=== PATIENT | female | born 1990 | race Caucasian/White ===

== ENCOUNTER 2023-04-09 15:50 | Outpatient (CLI) | payer OTHER, SELFPAY ==
[2023-04-09 16:20] VITALS: BMI 25.2
[2023-04-09 16:30] VITALS: BP 124/79; PULSE 66
[2023-04-09 16:31] VITALS: PULSE 70; O2SAT 98
[2023-04-09 16:34] VITALS: TEMP 37.1
[2023-04-09 17:16] LABS: ROM Internal Control Test YES-OK TO RESULT pt. (Internal QC); ROM Patient Test Negative (Negative); Record Kit Lot#, ROM+ K1409
--- NOTE | 2023-04-09 21:05 | OB.TRI.NOTE ---
HPI - General General Date of Service: 04/09/23 HPI Narrative WHITNEY WANG, is a 32 F @ 40 weeks who presents from office to r/o ROM- + nitrazine but negative ferning. PFSH PFSH Home Medications vit no.95-ferrous fumarate 28 mg-folic acid 800 mcg tablet () 1 tab PO DAILY 04/09/23 [History Last Taken Unknown] Allergy/AdvReac Type Severity Reaction Status Date / Time No Known Allergies Allergy Verified 04/09/23 16:32 NST FHR Rate Baby A Baseline: 135 Variability:: Moderate Accelerations:: 15 x 15 Decelerations:: None NST Reactive:: Yes FHR Category:: Category I Uterine Activity:: 2-3 min (per RN pt was not feeling them) Assessment & Plan (1) 40 weeks gestation of : (2) False labor: PLAN: Plan @ 40 weeks- Membranes intact, not in labor 1) cervical exam in office 1cm 2) ROM plus negative - membranes intact 3) follow up as scheduled , labor precautions 4) NST reactive cat 1- well being established. 5) dc home
== END 2023-04-09 17:40 | disposition home or self-care (01) ==
LOC: WPPAT 16:18 → WP 16:19
PROVIDERS: Visit Provider Obstetrics & Gynecology
DX: O47.1 False labor at or after 37 completed weeks of gestation (principal); Z3A.40 40 weeks gestation of pregnancy
CPT/HCPCS: 59025; 59050; 84112

== ENCOUNTER 2023-04-16 07:00 | Inpatient (IN) | payer OTHER, SELFPAY ==
[2023-04-16] VITALS (75 sets, daily range): BP systolic 69–164; BP diastolic 39–127; PULSE 48–88; TEMP 36.1–36.6; O2SAT 87–100; BMI 25.1
[2023-04-16] MEDS: Lactated Ringers 1,000 ML 50 ML IV (07:50)
[2023-04-16 08:11] LABS: Absolute Lymphocyte Count 1.43 X10^3/uL (0.83-4.51); Absolute Neutrophil Count 4.3 X10^3/uL (2.0-7.7); Basophil# 0.03 X10^3/uL; Basophil% 0.5 % (0-1); Eosinophil# 0.02 X10^3/uL; Eosinophils% 0.3 % (0-5); Hematocrit 39.3 % (37-47); Hemoglobin 13.4 g/dL (12.0-15.0); Lymphocyte # 1.43 X10^3/ul (0.83-4.51); Lymphocyte % 22.3 % (19-41); Mean Corp Hgb Conc 34.1 g/dL (32-36); Mean Corpuscular Hgb 31.5 pg (27.0-32.0); Mean Corpuscular Volume 92.5 fL (81-99); Mean Platelet Vol. 10.5 fl (6.2-12.0); Monocyte# 0.57 X10^3/uL; Monocyte% 8.9 % (0-10); NRBC Flagged by Analyzer 0 % (0-5); Neutrophil # 4.31 X10^3/uL (2.7-7.7); Neutrophil % 67.4 % (47-70); Platelet Count 260 K/mm3 (150-450); RBC Distribution Width CV 12.4 % (11.6-14.6); RBC Distribution Width SD 41.8 fl (35.1-43.9); Red Blood Count 4.25 M/mm3 (4.2-5.4); White Blood Count 6.4 K/mm3 (4.4-11.0)
[2023-04-16] MEDS: 0.9% Normal Saline Single 100 ML IV.SOLN. INTRA-UTER (08:34)
[2023-04-16] MEDS: Oxytocin 15 Units/NS 250ml 15 UNITS/250 ML IV.SOLN 2 UNITS IV (08:42)
--- NOTE | 2023-04-16 08:44 | PCM.HP.OB ---
HPI - General General Date of Admission: 04/16/23 HPI Narrative WHITNEY WANG, is a 32 F [id number] presents at 41w1d for induction of labor for postdates. uncomplicated. Maternal Data Information LELE Calculator Estimated Delivery Date Method Current WG Current Estimate 04/08/23 Manual 41w 1d PFSH PFSH Home Medications vit no.95-ferrous fumarate 28 mg-folic acid 800 mcg tablet () 1 tab PO DAILY 04/09/23 [History Last Taken 04/15/23] Allergy/AdvReac Type Severity Reaction Status Date / Time No Known Allergies Allergy Verified 04/09/23 16:32 Surgical History (Updated 04/16/23 @ 09:06 by Lauryn Oscar) [place] teeth removed Social History Smoking Status: Never smoker History Elective abortions Hx Para 1 Spontaneous abortions Hx # Term Pregnancies Ectopic pregnancies Hx # Pregnancies Multiple births # of living children NST FHR Rate Baby A Baseline: 135 Variability:: Moderate Accelerations:: 15 x 15 Decelerations:: None FHR Category:: Category I Uterine Activity:: Irregular ROS Constitutional Constitutional: Reports systems reviewed and no addt'l complaints, except as documented; Denies headache(s) Eyes Eyes: Denies acute decrease in peripheral vision, blurry vision or change in vision ENT HEENT: Reports systems reviewed and no addt'l complaints, except as documented Cardiovascular Cardiovascular: Denies chest pain or dizziness Respiratory/Chest Respiratory/Chest: Denies cough, dyspnea, dyspnea on exertion, shortness of breath at rest or shortness of breath with exertion Gastrointestinal Gastrointestinal: Denies abdominal pain, diarrhea, nausea or vomiting Genitourinary Genitourinary: Denies abdominal discomfort Musculoskeletal Musculoskeletal: Denies limited range of motion Integumentary Integumentary: Reports systems reviewed and no addt'l complaints, except as documented Neurologic Neurologic: Reports systems reviewed and no addt'l complaints, except as documented Psychiatric Psychiatric: Reports systems reviewed and no addt'l complaints, except as documented Endocrine Endocrinology: Reports systems reviewed and no addt'l complaints, except as documented Hematologic/Lymphatic Hematologic/Lymphatic: Reports systems reviewed and no addt'l complaints, except as documented Allergic/Immunologic Allergic/Immunologic: Reports systems reviewed and no addt'l complaints, except as documented Vital Signs Vital Signs Vital Signs: 04/16/23 07:23 04/16/23 07:23 04/16/23 07:24 Temperature Temperature Source Temporal Pulse Rate 68 Blood Pressure 126/67 H BP Systolic 126 BP Diastolic 67 Pulse Ox 04/16/23 07:25 04/16/23 07:25 04/16/23 07:24 Temperature 97.6 F L Temperature Source Pulse Rate 88 Blood Pressure BP Systolic BP Diastolic Pulse Ox 97 Weight Weight: 155 lb 9.6 oz Body Mass Index (BMI) 25.1 Physical Exam Const alert and oriented x3 General Appearance: cooperative Orientation / Consciousness: awake, oriented to person, oriented to place and oriented to time Exam Limitations: no limitations HEENT normocephalic Head and Scalp: normal to inspection, normocephalic and atraumatic Face and Sinus: normal facial exam Eyes General Eye: normal appearance of both eyes Neck full ROM Chest Chest: symmetrical chest wall rise Resp normal respiratory effort and normal air movement Auscultation: clear to auscultation bilaterally Cardio regular rate, regular rhythm, S1 normal heart sound, S2 normal heart sound, no murmurs, no rub, no gallops and no clicks GI normal to inspection, nondistended, normoactive bowel sounds and non-tender appearance of the vagina normal Bladder / Kidney Exam: no CVA tenderness Manual OB Exam: estimated gestational size appropriate, presentation cephalic, dilated 2, effaced 60, station -2 and other elizabeth catheter inserted into cervix with stylus without difficulty. 30ml NS instilled into balloon. Patient tolerated well. Amniotic Fluid: no amniotic fluid noted Back/Spine normal ROM Extremity normal to inspection and full ROM Skin no rashes or lesions noted Neuro oriented x3, CN's II-XII intact bilaterally and moves all extremities Sensorium / Orientation: awake, alert and oriented to person Motor Exam: clonus absent Deep Tendon Reflexes: Rt Patellar (L4): 2+ and Lt Patellar (L4): 2+ Labs Labs Labs: Blood Type A POSITIVE Antibody Screen NEGATIVE Hct 39.3 % (37-47) Hgb 13.4 g/dL (12.0-15.0) Syphilis Total Ab Non-reactive GBS negative RPR negative Glucose 106 nml Rubella Positive HBsAG negative HepC negative HIV non reactive A positive GC/CT negative Assessment & Plan (1) 41 weeks gestation of : (2) Encounter for induction of labor: (3) Post-dates : PLAN: Plan 1) Admit to labor and delivery 2) Routine labs 3) Continuous EFM 4) Elizabeth bulb for cervical ripening with pitocin for active management 5) GBS negative 6) Epidural for pain management upon request 7) collaborative physician and notified of patient admission, status, above findings, assessment and plan.
[2023-04-16 08:47] LABS: Syphilis Antibodies Non-reactive
[2023-04-16] MEDS: LACTATED RINGERS 500 ML 999 ML IV ×2 (10:35→16:56)
[2023-04-16] MEDS: fentaNYL-bupivacaine (epidural) 100 ML BAG EPIDURAL ×2 (11:56→16:11)
--- NOTE | 2023-04-16 12:21 | PCM.PN.OB ---
Subjective Subjective Resting in bed with epidural. and family at bedside Objective Data Objective Data Vital Signs: Vital Signs Temp Pulse BP Pulse Ox 97.2 F L 76 130/88 H 100 04/16/23 11:21 04/16/23 12:15 04/16/23 12:15 04/16/23 12:09 Weight: 155 lb 9.6 oz Body Mass Index (BMI) 25.1 Intake & Output: Intake and Output for Last 24 Hours 04/14/23 04/15/23 04/16/23 23:59 23:59 23:59 Intake Total 683.03 / 683.03 Balance 683.03 / 683.03 Lab / Micro Data 04/16/23 07:50 Labs: Laboratory Results - last 24 hr 04/16/23 07:50: WBC 6.4, RBC 4.25, Hgb 13.4, Hct 39.3, MCV 92.5, MCH 31.5, MCHC 34.1, RDW Std Deviation 41.8, RDW Coeff of Baltazar 12.4, Plt Count 260, MPV 10.5, Immature Gran % (Auto) 0.600, Neut % (Auto) 67.4, Lymph % (Auto) 22.3, [place] % (Auto) 8.9, Eos % (Auto) 0.3, Baso % (Auto) 0.5, Absolute Neuts (auto) 4.3, Absolute Lymphs (auto) 1.43, Nucleated RBC % 0, Syphilis Total Ab Non-reactive, Blood Type A POSITIVE, Antibody Screen NEGATIVE Physical Exam Amniotic Fluid: meconium-stained and other AROM, tolerated well NST FHR Rate Baby A Baseline: 135 Variability:: Moderate Accelerations:: 15 x 15 Decelerations:: None FHR Category:: Category I Uterine Activity:: every 1-2 minutes. Pitocin turned down from 4mus to 2 mus Assessment & Plan (1) Post-dates : (2) Encounter for induction of labor: (3) 41 weeks gestation of : (4) Thin meconium stained amniotic fluid: PLAN: Plan 1) AROM, meconium stained fluid. Will call for rehabilitation center manager and respiratory to delivery 2) Category 1 FHT 3) collaborative physician and notified of patient status, above assessment, plan, and labor progress. 4) Positional changes 5) Epidural for pain management
[2023-04-16] MEDS: Lactated Ringers 1,000 ML 200 ML IV (14:58)
--- NOTE | 2023-04-16 18:20 | PN.OBGYN_ITS ---
Subjective Subjective Resting in bed with peanut ball. Epidural for pain management, feeling some pressure. Family at bedside. Objective Data Objective Data Vital Signs: Vital Signs Temp Pulse BP Pulse Ox 97.3 F L 56 L 114/56 L 100 04/16/23 16:53 04/16/23 18:16 04/16/23 18:16 04/16/23 17:00 Weight: 155 lb 9.6 oz Body Mass Index (BMI) 25.1 Intake & Output: Intake and Output for Last 24 Hours 04/14/23 04/15/23 04/16/23 23:59 23:59 23:59 Intake Total 1941. / 1941.23 Output Total 600 / 600 Balance 1341.23 / 1341.23 Lab / Micro Data 04/16/23 07:50 Labs: Laboratory Results - last 24 hr 04/16/23 07:50: WBC 6.4, RBC 4.25, Hgb 13.4, Hct 39.3, MCV 92.5, MCH 31.5, MCHC 34.1, RDW Std Deviation 41.8, RDW Coeff of Baltazar 12.4, Plt Count 260, MPV 10.5, Immature Gran % (Auto) 0.600, Neut % (Auto) 67.4, Lymph % (Auto) 22.3, [place] % (Auto) 8.9, Eos % (Auto) 0.3, Baso % (Auto) 0.5, Absolute Neuts (auto) 4.3, Absolute Lymphs (auto) 1.43, Nucleated RBC % 0, Syphilis Total Ab Non-reactive, Blood Type A POSITIVE, Antibody Screen NEGATIVE Physical Exam Manual OB Exam: presentation cephalic, dilated 8cm, effaced 90 and station 0 NST FHR Rate Baby A Baseline: 120 Variability:: Moderate Accelerations:: 15 x 15 Decelerations:: Late and Variable FHR Category:: Category II Uterine Activity:: Irregular every 1-5 minutes, strong. Assessment & Plan (1) Thin meconium stained amniotic fluid: (2) Post-dates : (3) Encounter for induction of labor: (4) 41 weeks gestation of : PLAN: Plan 1) Category 2 FHT, positional changes and IV fluid bolus 2) Pitocin off at this time 3) Epidural for pain management, dosage decreased by anesthesia 4) notified of patient status, above assessment, plan of care 5) Labor progressing
[2023-04-16] MEDS: Ondansetron 4 MG/2 ML Vial IV (18:57)
--- NOTE | 2023-04-16 20:10 | OP.PCM_ITS ---
Assessment & Plan (1) Vaginal delivery: (2) Thin meconium stained amniotic fluid: (3) Second degree perineal laceration: Maternal Data Information LELE Calculator Estimated Delivery Date Method Current WG Current Estimate 04/08/23 Manual 41w 1d Vaginal Delivery Maternal Presentation Maternal Presentation: Medically Indicated Induction (postdates) Type of Induction: Pitocin and Mirza Bulb Medical Reason for Induction: Post term Operative Information Date of Procedure: 04/16/23 Pre-Operative Diagnosis: Induction of Labor, postdates Post-Operative Diagnosis: , 2nd degree perineal laceration Surgery / Procedure Performed: Spontaneous Vaginal Delivery Type of Anesthesia: Epidural Estimated Blood Loss: 400ml Time of Delivery: 19:38 Findings Description of Procedure: Progressed to complete with urge to push. Epidural for pain management. Double Cut Off Saw Operator and respiratory called for meconium stained fluid. of viable female infant over 2nd degree perineal laceration.APGARS 8,9 respectively. head delivered with body immediately forthcoming. Placed on maternal abdomen, strong cry. Mouth and nares suctioned for secretions. Pitocin started for active 3rd stage management. Cord doubly clamped and cut by FOB after pulsations ceased, delayed cord clamping. Placenta delivered intact via ramirez, 3 vessel cord intact. Perineum inspected and revealed 2nd degree perineal laceration. Repaired with 3.0 vicryl rapide and lidocaine. Fundus firm and hemostasis achieved. EBL 400ml. Mom and baby stable, planning to breastfeed. Family bonding well. notified of delivery and above assessment. Presentation: Vertex and DEB Amniotic Membrane Rupture Type: Artificial Amniotic Fluid Description: Lightly stained meconium Placental Delivery Description: Spontaneous Placenta Disposition: [facility] Cord Vessel Description: 3 Vessels Cord Entanglement: None Infant A Gender: Female (1 minute): 8 (5 minute): 9 Delayed Cord Clamping: Yes Post Vaginal Delivery Medications Given After Delivery: IV Pitocin Episiotomy Description: None Laceration: Perineal Extension/lac and 2nd degree Complication Complications: None
[2023-04-16] MEDS: Oxytocin 15 Units/NS 250ml 15 UNITS/250 ML IV.SOLN 83 UNITS IV (20:13)
[2023-04-17 03:45] VITALS: BP 111/65; PULSE 74; RESP 16; TEMP 36.9; O2SAT 95
[2023-04-17 06:04] LABS: Absolute Lymphocyte Count 1.75 X10^3/uL (0.83-4.51); Absolute Neutrophil Count 10.7 X10^3/uL (2.0-7.7); Basophil# 0.03 X10^3/uL; Basophil% 0.2 % (0-1); Eosinophil# 0.01 X10^3/uL; Eosinophils% 0.1 % (0-5); Lymphocyte # 1.75 X10^3/ul (0.83-4.51); Mean Corp Hgb Conc 34.4 g/dL (32-36); Mean Platelet Vol. 10.1 fl (6.2-12.0); Monocyte# 0.87 X10^3/uL; Monocyte% 6.5 % (0-10); NRBC Flagged by Analyzer 0 % (0-5); Neutrophil % 79.8 % (47-70); Platelet Count 218 K/mm3 (150-450); RBC Distribution Width CV 12.4 % (11.6-14.6); RBC Distribution Width SD 42.1 fl (35.1-43.9); Red Blood Count 3.44 M/mm3 (4.2-5.4); White Blood Count 13.4 K/mm3 (4.4-11.0)
[2023-04-17] MEDS: Acetaminophen 500 MG Tablet 1000 MG PO ×2 (08:42→15:42)
[2023-04-17 08:43] VITALS: BP 126/82; PULSE 61; RESP 16; TEMP 36.3
--- NOTE | 2023-04-17 10:15 | PCM.PN.OB ---
Subjective Subjective Doing well per patient and nursing staff. Ambulating and taking PO without difficulty. Voiding and passing flatus. Pain controlled. , services for assistance. Denies headache, visual changes, chest pain, shortness of breath, leg pain or increased bleeding. Lochia normal. Objective Data Objective Data Vital Signs: Vital Signs Temp Pulse Resp BP Pulse Ox O2 Del Method 97.4 F L 61 16 126/82 H 95 Room Air 04/17/23 08:43 04/17/23 08:43 04/17/23 08:43 04/17/23 08:43 04/17/23 03:45 04/17/23 08:43 Oxygen Delivery Method Room Air Weight: 155 lb 9.6 oz Body Mass Index (BMI) 25.1 Intake & Output: Intake and Output for Last 24 Hours 04/15/23 04/16/23 04/17/23 23:59 23:59 23:59 Intake Total 3414.16 / 3414.16 Output Total 1800 / 1800 700 / 700 Balance 1614.16 / 1614.16 -700 / -700 Lab / Micro Data 04/17/23 05:55 Labs: Laboratory Results - last 24 hr 04/17/23 05:55: WBC 13.4 H, RBC 3.44 L, Hgb 11.0 L, Hct 32.0 L, MCV 93.0, MCH 32.0, MCHC 34.4, RDW Std Deviation 42.1, RDW Coeff of Baltazar 12.4, Plt Count 218, MPV 10.1, Immature Gran % (Auto) 0.400, Neut % (Auto) 79.8 H, Lymph % (Auto) 13.0 L, [place] % (Auto) 6.5, Eos % (Auto) 0.1, Baso % (Auto) 0.2, Absolute Neuts (auto) 10.7 H, Absolute Lymphs (auto) 1.75, Nucleated RBC % 0 ROS Constitutional Constitutional: Reports systems reviewed and no addt'l complaints, except as documented; Denies headache(s) Eyes Eyes: Denies acute decrease in peripheral vision, blurry vision or change in vision ENT HEENT: Reports systems reviewed and no addt'l complaints, except as documented Cardiovascular Cardiovascular: Denies chest pain or dizziness Respiratory/Chest Respiratory/Chest: Denies cough, dyspnea, dyspnea on exertion, shortness of breath at rest or shortness of breath with exertion Gastrointestinal Gastrointestinal: Denies abdominal pain, diarrhea, nausea or vomiting Genitourinary Genitourinary: Denies abdominal discomfort Musculoskeletal Musculoskeletal: Denies limited range of motion Integumentary Integumentary: Reports systems reviewed and no addt'l complaints, except as documented Neurologic Neurologic: Reports systems reviewed and no addt'l complaints, except as documented Psychiatric Psychiatric: Reports systems reviewed and no addt'l complaints, except as documented Endocrine Endocrinology: Reports systems reviewed and no addt'l complaints, except as documented Hematologic/Lymphatic Hematologic/Lymphatic: Reports systems reviewed and no addt'l complaints, except as documented Allergic/Immunologic Allergic/Immunologic: Reports systems reviewed and no addt'l complaints, except as documented Physical Exam Const alert and oriented x3 General Appearance: cooperative Orientation / Consciousness: awake, oriented to person, oriented to place and oriented to time Exam Limitations: no limitations HEENT normocephalic Head and Scalp: normal to inspection, normocephalic and atraumatic Face and Sinus: normal facial exam Eyes General Eye: normal appearance of both eyes Neck full ROM Chest Chest: symmetrical chest wall rise Resp normal respiratory effort and normal air movement Auscultation: clear to auscultation bilaterally Cardio regular rate, regular rhythm, S1 normal heart sound, S2 normal heart sound, no murmurs, no rub, no gallops and no clicks GI normal to inspection, nondistended, normoactive bowel sounds and non-tender appearance of the vagina normal Bladder / Kidney Exam: no CVA tenderness Back/Spine normal ROM Extremity normal to inspection and full ROM Skin no rashes or lesions noted Neuro oriented x3, CN's II-XII intact bilaterally and moves all extremities Sensorium / Orientation: awake, alert and oriented to person Motor Exam: clonus absent Deep Tendon Reflexes: Rt Patellar (L4): 2+ and Lt Patellar (L4): 2+ Assessment & Plan (1) Second degree perineal laceration: (2) Vaginal delivery: (3) Lactating mother: PLAN: Plan 1) Routine PP care 2) Pain management 3) without difficulty 4) Hgb stable 5) Planning D/C home today 6) Follow up in 2 weeks for virtual visit and 6 weeks for PP visit
--- NOTE | 2023-04-17 10:17 | DS.PCM_ITS ---
Providers Date of Admission: 04/16/23 Date of Discharge: 04/17/23 Primary Care Physician: Allyson Primary Care Phys Reason For Visit: VAGINAL DELIVERY Diagnosis Discharge Diagnosis (1) Second degree perineal laceration: Status: Acute Code(s): O70.1 - Second degree perineal laceration during delivery (2) Vaginal delivery: Status: Acute Code(s): O80 - Encounter for full-term uncomplicated delivery (3) Lactating mother: Status: Acute Code(s): Z39.1 - Encounter for care and examination of lactating mother Plan 1) Routine PP care 2) Pain management 3) without difficulty 4) Hgb stable 5) Planning D/C home today 6) Follow up in 2 weeks for virtual visit and 6 weeks for PP visit Medications at Discharge Home Medications vit no.95-ferrous fumarate 28 mg-folic acid 800 mcg tablet () 1 tab PO DAILY 04/09/23 acetaminophen 500 mg tablet 1,000 mg (2 x 500 mg) PO Q6H PRN PRN Pain 1-10 Or Fever #0 tabs 04/17/23 benzocaine 20 %-menthol 0.5 % topical aerosol (Dermoplast (with menthol)) 1 spray topical TID PRN PRN perineal discomfort #0 grams 04/17/23 ibuprofen 600 mg tablet 600 mg PO Q6H PRN PRN Pain Score 1-3 #30 tabs 04/17/23 Hospital Course Summary of Care Provided Minutes Spent on Discharge: 15 Weight / BMI Weight Weight: 155 lb 9.6 oz Body Mass Index (BMI) 25.1 ABG / Lab / Microbiology Data 04/17/23 05:55 Laboratory: Laboratory Results - last 24 hr 04/17/23 05:55: WBC 13.4 H, RBC 3.44 L, Hgb 11.0 L, Hct 32.0 L, MCV 93.0, MCH 32.0, MCHC 34.4, RDW Std Deviation 42.1, RDW Coeff of Baltazar 12.4, Plt Count 218, MPV 10.1, Immature Gran % (Auto) 0.400, Neut % (Auto) 79.8 H, Lymph % (Auto) 13.0 L, [place] % (Auto) 6.5, Eos % (Auto) 0.1, Baso % (Auto) 0.2, Absolute Neuts (auto) 10.7 H, Absolute Lymphs (auto) 1.75, Nucleated RBC % 0 D/C Instructions Discharge Diet: No restrictions Discharge Activity: Return to Normal Activity, May Shower and May Take a Tub Bath May resume sexual activity in: 6 weeks Weight Bearing Status: Full weight bearing Call your doctor if you observe: Fever of 101 or Higher, Inability to urinate, Inability to have a bowel movement, Shortness of breath, Chest pain and Uncontrolled pain Please Follow Up With: Deann Calixto CNM When: 2 weeks for virtual visit and 6 weeks in person for PP visit Meaningful Use Info Meaningful Use Diagnoses (Choose all that apply): None applicable Discharge Plan Admission Admit Date/Time: 04/16/23 07:00 Primary Reason for Your Visit: Vaginal Delivery Attending Provider: Deann Calixto Primary Care Provider: Allyson Zhang Primary Discharge Orders/Prescriptions Prescriptions: New acetaminophen 500 mg Tablet 1,000 mg PO Q6H PRN PRN (Reason: Pain 1-10 Or Fever) Qty: 0 0RF Dermoplast (with menthol) 20-0.5 % Aerosol 1 spray topical TID PRN PRN (Reason: perineal discomfort) Qty: 0 0RF Protocol: *Topical Application Instructions APPLICATION INSTRUCTIONS: 1 spray 3 times a day as needed for perineal discomfort ibuprofen 600 mg Tablet 600 mg PO Q6H PRN PRN (Reason: Pain Score 1-3) Qty: 30 0RF No Action PNV cmb#95-ferrous fumarate-FA [] 28 mg iron- 800 mcg tablet 1 tab PO DAILY Referrals / Follow Up: Deann Calixto CNM [Med Staff - Adv Practice Prof] - (2 weeks for virtual visit and 6 weeks for PP visit) Care PhysicianAllyson Primary [Primary Care Provider] - Disposition Disposition (needs filled in before D/C Order can be placed): Home, Self Care
[2023-04-17 13:15] VITALS: BP 100/74; PULSE 89; TEMP 36.8
[2023-04-17 17:35] VITALS: BP 98/64; PULSE 71; RESP 16; TEMP 36.8
== END 2023-04-17 20:30 | disposition home or self-care (01) | DRG 807 ==
PROVIDERS: Admitting Provider Advanced Practice Midwife; Referring Provider Advanced Practice Midwife; Visit Provider Advanced Practice Midwife
DX: O48.0 Post-term pregnancy (principal); Z37.0 Single live birth; O70.1 Second degree perineal laceration during delivery; O77.0 Labor and delivery complicated by meconium in amniotic fluid; Z3A.41 41 weeks gestation of pregnancy
CPT/HCPCS: 59025; 59050; 85025; 86780; 86850; 86900; 86901; 99221; J7120; G0378; J2405